=== PATIENT | female | born 1985 | race Caucasian/White ===

== ENCOUNTER → 2021-06-22 12:49 | Outpatient (CLI) | payer OTHER, SELFPAY ==
--- NOTE | ~2021-06-22 | US_ITS ---
EXAMINATION: US pelvic complete w TV DATE: 06/22/2021 13:18 INDICATION: Right lower quadrant pain Comparison:Ultrasound dated 02/19/2017 TECHNIQUE: Multiple transabdominal and endovaginal sonographic images of the pelvis performed. FINDINGS: The uterus measures 10.3 x 4.1 x 6.1 cm. The endometrial complex measures 9 mm. There is tr ugo fluid in the endometrium. The right ovary measures 2.8 x 2.6 x 3.2 cm and the left ovary measures 4 x 2.4 x 3.4 cm. There are small follicles in each ovary. There is a 2.3 cm left ovarian cyst. Normal doppler signal in both ova jatin. There is no free fluid in the pelvis. There are no abnormal masses seen on either side. IMPRESSION: 1. Left ovarian cyst measuring 2.3 cm. Reviewed, dictated and finalized at location A.
== END ==
PROVIDERS: PCP Internal Medicine; Visit Provider Internal Medicine
DX: R10.31 Right lower quadrant pain (principal); N83.202 Unspecified ovarian cyst, left side
CPT/HCPCS: 76830; 76856